=== PATIENT | male | born 1965 | race Caucasian/White ===

== ENCOUNTER 2020-08-20 14:51 | Outpatient (CLI) | payer OTHER ==
[2020-08-20 16:56] LABS: #Basophils 0.1 10x3/uL (0.0-0.2); #Eosinphils 0.3 10x3/uL (0.0-0.5); #Monocytes 0.6 10x3/uL (0.0-1.1); #Neutrophils 4.4 10x3/uL (1.5-8.4); %Basophils 1.8 % (0.0-2.0); %Eosinophils 3.9 % (0.0-6.0); %Lymphocytes 30.2 % (18.0-47.0); %Monocytes 8.1 % (0.0-10.0); %Neutrophils 55.7 % (40.0-75.0); Hemoglobin 14.9 g/dL (13.5-17.5); Mean Corpuscular HGB CONC 33.4 g/dL (32.0-36.0); Mean Corpuscular Volume 89.7 fl (81.2-95.1); Mean Platelet Volume 10.4 fl (7.4-10.4); Platelet Count 255 10x3/uL (150-450); RBC Distribution Width 12.9 % (11.5-14.5); Red Blood Cell (RBC) Count 4.97 10x6/uL (4.32-5.72); White Blood Cell (WBC) Count 7.9 10x3/uL (3.5-10.5)
[2020-08-20 17:06] LABS: Anion Gap 10 mmol/L (10-20); BUN (Urea Nitrogen) 11 mg/dL (8.4-25.7); Calc. Creatinine Clearance 0 mL/min (70-130); Calcium 9.3 mg/dL (7.8-10.44); Carbon Dioxide 27 mmol/L (22-29); Chloride 108 mmol/L (98-107); Glucose 86 mg/dL (70-105); Potassium 3.9 mmol/L (3.5-5.1); Sodium 141 mmol/L (136-145)
[2020-08-21 01:49] LABS: SARS-CoV-2 PCR by NAA Not Detected (NotDetected)
== END 2020-08-20 14:52 | disposition home or self-care (01) ==
LOC: LABBT 14:51
PROVIDERS: ATTEND Orthopaedic Surgery
DX: Z01.818 Encounter for other preprocedural examination (principal); Z20.822 Contact with and (suspected) exposure to COVID-19; S46.012A Strain of muscle(s) and tendon(s) of the rotator cuff of left shoulder, initial encounter
CPT/HCPCS: 80048; 85025; 87635; 93005; 93010; U0003; U0005

== ENCOUNTER 2020-08-25 06:03 | Day surgery (SDC) | payer OTHER ==
[2020-08-24 09:54] VITALS: BMI 25.6
[2020-08-25] MEDS ORDERED: Sodium Chloride 0.9% 10 ML ONE (06:50)
[2020-08-25] MEDS ORDERED: Lidocaine 1% (PF) 30 ML VIAL ONE (06:50)
[2020-08-25] MEDS ORDERED: Bupivacaine 0.5% 10 ML VIAL ONE (06:50)
[2020-08-25] MEDS ORDERED: Midazolam HCl 2 mg/2 ml Vial ONE ×2 (06:50)
[2020-08-25] MEDS ORDERED: Fentanyl 100 MCG/2 ML VIAL ONE ×5 (06:50→10:23)
[2020-08-25] MEDS ORDERED: Dexamethasone 20 MG/5 ML VIAL ONE (07:15)
[2020-08-25] MEDS ORDERED: Glycopyrrolate 0.2 MG/ML 5 ML SYRINGE ONE (07:15)
[2020-08-25] MEDS ORDERED: Ondansetron PF 4 MG/2 ML Vial ONE (07:15)
[2020-08-25] MEDS ORDERED: PROPOFOL 200 MG/20 ML VIAL ONE (07:15)
[2020-08-25] MEDS ORDERED: Lidocaine 1% PF 5 ML VIAL ONE (07:15)
[2020-08-25] MEDS ORDERED: ePHEDrine 50 MG/ML VIAL ONE (07:15)
[2020-08-25] MEDS ORDERED: Ketorolac Tromethamine 30 MG/ML VIAL ONE (07:15)
[2020-08-25] MEDS ORDERED: Rocuronium Bromide 10 MG/ML (10ML VIAL) ONE (07:15)
[2020-08-25] MEDS ORDERED: Bupivacaine PF 0.5% 30 ML VIAL ONE (07:15)
[2020-08-25] MEDS ORDERED: Phenylephrine 10 MG/ML VIAL ONE (07:21)
[2020-08-25] MEDS ORDERED: Bupivacaine 0.25% HCL 30 ML VIAL ONE (08:01)
[2020-08-25] MEDS ORDERED: XYLOCAINE 2%-EPI 1:100,000 20 ML VIAL ONE (08:01)
[2020-08-25] MEDS ORDERED: Fentanyl 100 MCG/2 ML VIAL IV PRN (08:07)
[2020-08-25] MEDS ORDERED: Ropivacaine 0.2% 550 ML 550 ML NERVE BLCK SCH (08:15)
[2020-08-25] MEDS ORDERED: Ondansetron PF 4 MG/2 ML Vial IVP PRN (08:15)
[2020-08-25] MEDS ORDERED: Zolpidem Tartrate 5 MG TAB PO PRN (08:15)
[2020-08-25] MEDS ORDERED: traMADol HCl 50 MG TAB PO PRN ×2 (08:15)
[2020-08-25] MEDS ORDERED: Promethazine HCl 25 MG/ML VIAL IM PRN (08:15)
[2020-08-25] MEDS ORDERED: HYDROcodone/Acetaminophen 10/325 mg Tablet PO PRN ×2 (08:15)
[2020-08-25] MEDS ORDERED: Promethazine HCl 25 MG/ML VIAL ONE (11:26)
[2020-08-25] MEDS ORDERED: HYDROcodone/Acetaminophen 5/325 mg Tablet ONE (11:53)
== END 2020-08-25 12:30 | disposition home or self-care (01) ==
LOC: SDC 06:03
PROVIDERS: ATTEND Orthopaedic Surgery
PROC: 0RHK04Z Insertion of Internal Fixation Device into Left Shoulder Joint, Open Approach (ICD-10-PCS; principal; 2020-08-25)
PROC: 0LS40ZZ Reposition Left Upper Arm Tendon, Open Approach (ICD-10-PCS; principal; 2020-08-25)
PROC: 0RNK4ZZ Release Left Shoulder Joint, Percutaneous Endoscopic Approach (ICD-10-PCS; principal; 2020-08-25)
PROC: 0LQ24ZZ Repair Left Shoulder Tendon, Percutaneous Endoscopic Approach (ICD-10-PCS; principal; 2020-08-25)
PROC: 3E0T3BZ Introduction of Anesthetic Agent into Peripheral Nerves and Plexi, Percutaneous Approach (ICD-10-PCS; principal; 2020-08-25)
DX: S46.012A Strain of muscle(s) and tendon(s) of the rotator cuff of left shoulder, initial encounter (principal); M25.812 Other specified joint disorders, left shoulder; S43.432A Superior glenoid labrum lesion of left shoulder, initial encounter; M75.22 Bicipital tendinitis, left shoulder; M25.312 Other instability, left shoulder; Z88.8 Allergy status to other drugs, medicaments and biological substances; W00.9XXA Unspecified fall due to ice and snow, initial encounter; G89.18 Other acute postprocedural pain
CPT/HCPCS: A4306; C1713; J0690; J1100; J1885; J2001; J2250; J2370; J2405; J2550; J2704; J2795; J3010; J3490; S0020

== ENCOUNTER 2021-03-09 15:50 | Outpatient (CLI) | payer OTHER ==
[2021-03-09 17:08] LABS: #Basophils 0.1 10x3/uL (0.0-0.2); #Eosinphils 0.2 10x3/uL (0.0-0.5); #Monocytes 0.6 10x3/uL (0.0-1.1); #Neutrophils 3.6 10x3/uL (1.5-8.4); %Basophils 1.4 % (0.0-2.0); %Eosinophils 2.7 % (0.0-6.0); %Lymphocytes 35.8 % (18.0-47.0); %Monocytes 8.8 % (0.0-10.0); Hemoglobin 14.9 g/dL (13.5-17.5); Mean Corpuscular HGB CONC 33.6 g/dL (32.0-36.0); Mean Corpuscular Volume 89.3 fl (81.2-95.1); Mean Platelet Volume 9.9 fl (7.4-10.4); Platelet Count 233 10x3/uL (150-450); RBC Distribution Width 12.7 % (11.5-14.5); Red Blood Cell (RBC) Count 4.96 10x6/uL (4.32-5.72); White Blood Cell (WBC) Count 7.1 10x3/uL (3.5-10.5)
[2021-03-09 17:34] LABS: Anion Gap 13 mmol/L (10-20); BUN (Urea Nitrogen) 15 mg/dL (8.4-25.7); Calc. Creatinine Clearance 0 mL/min (70-130); Calcium 9.9 mg/dL (7.8-10.44); Carbon Dioxide 25 mmol/L (22-29); Chloride 107 mmol/L (98-107); Glucose 77 mg/dL (70-105); Potassium 3.9 mmol/L (3.5-5.1); Sodium 141 mmol/L (136-145)
[2021-03-10 02:16] LABS: SARS-CoV-2 PCR by NAA Not Detected (NotDetected)
== END 2021-03-09 15:51 | disposition home or self-care (01) ==
LOC: LABBT 15:50
PROVIDERS: ATTEND Orthopaedic Surgery
DX: Z01.812 Encounter for preprocedural laboratory examination (principal); M75.102 Unspecified rotator cuff tear or rupture of left shoulder, not specified as traumatic; Z20.822 Contact with and (suspected) exposure to COVID-19
CPT/HCPCS: 80048; 85025; U0003; U0005

== ENCOUNTER 2021-03-14 07:25 | Day surgery (SDC) | payer OTHER ==
[2021-03-10 14:35] VITALS: BMI 26.9
[2021-03-14] MEDS ORDERED: ceFAZolin 2 GM/DEX 5% 100 ML BAG ONE (08:12)
[2021-03-14] MEDS ORDERED: Vancomycin 1.5 GRAM/300 ML BAG 1.5 GM in Premix Bag 1 BAG IVPB SCH (08:15)
[2021-03-14] MEDS ORDERED: Fentanyl 100 MCG/2 ML VIAL ONE ×3 (09:01→12:34)
[2021-03-14] MEDS ORDERED: Midazolam HCl 2 mg/2 ml Vial ONE (09:01)
[2021-03-14] MEDS ORDERED: Ropivacaine 0.5% HCl/PF (150 MG/30 ML VIAL) ONE (10:09)
[2021-03-14] MEDS ORDERED: Ketorolac Tromethamine 30 MG/ML VIAL ONE (10:09)
[2021-03-14] MEDS ORDERED: Ropivacaine 2% HCl/PF (20 MG/10 ML VIAL) ONE (10:09)
[2021-03-14] MEDS ORDERED: Lidocaine 1% PF 5 ML VIAL ONE (10:09)
[2021-03-14] MEDS ORDERED: PROPOFOL 200 MG/20 ML VIAL ONE (10:09)
[2021-03-14] MEDS ORDERED: Rocuronium Bromide 10 MG/ML (10ML VIAL) ONE (10:09)
[2021-03-14] MEDS ORDERED: Ondansetron PF 4 MG/2 ML Vial ONE (10:09)
[2021-03-14] MEDS ORDERED: Dexamethasone 20 MG/5 ML VIAL ONE (10:09)
[2021-03-14] MEDS ORDERED: ePHEDrine 50 MG/ML VIAL ONE (10:09)
[2021-03-14] MEDS ORDERED: Ondansetron PF 4 MG/2 ML Vial IVP PRN (10:30)
[2021-03-14] MEDS ORDERED: Ropivacaine 0.2% 550 ML 550 ML NERVE BLCK SCH (10:30)
[2021-03-14] MEDS ORDERED: Promethazine HCl 25 MG/ML VIAL IM PRN (10:30)
[2021-03-14] MEDS ORDERED: Zolpidem Tartrate 5 MG TAB PO PRN (10:30)
[2021-03-14] MEDS ORDERED: SUGAMMADEX SODIUM 200 MG/2 ML VIAL ONE (11:38)
[2021-03-14] MEDS ORDERED: HYDROcodone/Acetaminophen 5/325 mg Tablet ONE (13:39)
== END 2021-03-14 14:15 | disposition home or self-care (01) ==
LOC: SDC 07:25
PROVIDERS: ATTEND Orthopaedic Surgery
PROC: 3E0T3BZ Introduction of Anesthetic Agent into Peripheral Nerves and Plexi, Percutaneous Approach (ICD-10-PCS; principal; 2021-03-14)
PROC: 0LQ20ZZ Repair Left Shoulder Tendon, Open Approach (ICD-10-PCS; principal; 2021-03-14)
DX: S46.012A Strain of muscle(s) and tendon(s) of the rotator cuff of left shoulder, initial encounter (principal); M25.812 Other specified joint disorders, left shoulder; Z88.8 Allergy status to other drugs, medicaments and biological substances; Z96.652 Presence of left artificial knee joint; Z98.890 Other specified postprocedural states; W50.0XXA Accidental hit or strike by another person, initial encounter; Y99.0 Civilian activity done for income or pay
CPT/HCPCS: A4306; C1713; J1100; J1885; J2250; J2405; J2704; J2795; J3010; J3370; J3490